=== PATIENT | female | born 1965 | race African-American/Black ===

== ENCOUNTER 2016-05-25 13:54 | Emergency (ER) | payer MEDICARE, MEDICAID ==
[~2016-05-25] VITALS: Ht 165.1 cm; Wt 42.0 kg
[2016-05-25] MEDS ORDERED: METHYLPREDNISOLONE SOD SUCC 125 MG/2 ML VIAL IV STA (15:36)
[2016-05-25] MEDS ORDERED: IPRATROPIUM BROMIDE (0.02%) 0.5MG/2.5ML NEB HHN STA (15:36)
[2016-05-25] MEDS ORDERED: ALBUTEROL (0.083%) 2.5MG/3ML NEB HHN SCH (16:00)
[2016-05-25 16:04] LABS: BASOPHILS % 0.7 % (0.0-2.0); DIFFERENTIAL COMMENT 0; EOSINOPHILS % 0.4 % (0.0-5.0); HEMATOCRIT. 44.4 % (36.0-48.0); HEMOGLOBIN. 15.4 g/dL (12.0-16.0); LYMPHOCYTES % 19.8 % (20.0-50.0); MEAN CORPUSCULAR HGB CONC 34.8 g/dL (31.0-37.0); MEAN CORPUSCULAR VOLUME 100.7 fL (81.0-99.0); MEAN PLATELET VOLUME 8.3 fl (7.4-10.4); MONOCYTES % 12.6 % (2.0-8.0); NEUTROPHILS % 66.5 % (40.0-76.0); PLATELET 164 x1000/uL (130-400); RED BLOOD CELL COUNT 4.41 mill/uL (4.2-5.4); WHITE BLOOD COUNT 4.6 x1000/uL (4.5-11.0)
[2016-05-25 16:07] LABS: PROTHROMBIN TIME 10.5 sec
[2016-05-25 16:14] LABS: ALANINE AMINOTRANSFERASE 27 IU/L (13-61); ALBUMIN 4.3 g/dL (3.4-5.0); ANION GAP 14; CALCIUM 9.5 mg/dL (8.5-10.1); CARBON DIOXIDE 27 mEq/L (21-32); CHLORIDE 97 mEq/L (98-107); INDEX HEMOLYSI 1 (1-3); INDEX ICTERIC 1 (1-4); INDEX LIPEMIC 1 (1-3); UREA NITROGEN BLOOD 15 mg/dL (7-21); eGFR > 60 mL/min (>60)
[2016-05-25 17:44] VITALS: BP 122/77
== END 2016-05-25 17:53 | disposition home or self-care (01) ==
LOC: ER 15:44
DX: J44.1 Chronic obstructive pulmonary disease with (acute) exacerbation (principal); I10 Essential (primary) hypertension; F17.210 Nicotine dependence, cigarettes, uncomplicated; Z90.710 Acquired absence of both cervix and uterus
CPT/HCPCS: 36415; 71010; 80053; 85025; 85610; 93005; 94640; 96374; 99285; 99406; J2930; J7611

== ENCOUNTER 2016-06-12 14:22 | Emergency (ER) | payer MEDICARE, MEDICAID ==
[~2016-06-12] VITALS: Ht 165.1 cm; Wt 60.0 kg
[2016-06-12] MEDS ORDERED: PREDNISONE 20MG TABLET PO ONE (15:00)
[2016-06-12] MEDS ORDERED: ONDANSETRON HCL 4MG TABLET PO ONE (15:00)
[2016-06-12] MEDS ORDERED: IPRATROPIUM/ALBUTEROL 0.5-3(2.5)MG/3ML NEB HHN ONE (15:00)
[2016-06-12 15:54] VITALS: BP 111/76
== END 2016-06-12 16:19 | disposition home or self-care (01) ==
LOC: ER 14:37
DX: J44.1 Chronic obstructive pulmonary disease with (acute) exacerbation (principal); I10 Essential (primary) hypertension; Z90.710 Acquired absence of both cervix and uterus; Z20.6 Contact with and (suspected) exposure to human immunodeficiency virus [HIV]
CPT/HCPCS: 71010; 94640; 99283; J7512; Q0162; J7620

== ENCOUNTER 2017-01-18 18:05 | Emergency (ER) | payer MEDICARE, MEDICAID ==
[~2017-01-18] VITALS: Ht 165.1 cm; Wt 50.0 kg
[2017-01-18] MEDS ORDERED: TETANUS, DIPHTHERIA, PERTUSSIS VAC/PF 0.5ML (>7YR OLD) IM ONE (19:45)
[2017-01-18] MEDS ORDERED: ACETAMINOPHEN 325MG TABLET PO ONE (19:45)
[2017-01-18] MEDS ORDERED: BACITRACIN ZINC OINT UDPKT TOP ONE (19:45)
[2017-01-18] MEDS ORDERED: LIDOCAINE HCL 1% 20ML VIAL (Pyxis) INJ MC ONE (19:45)
[2017-01-18 21:20] VITALS: BP 155/98
== END 2017-01-18 21:44 | disposition home or self-care (01) ==
LOC: ER 18:17
DX: S02.2XXA Fracture of nasal bones, initial encounter for closed fracture (principal); S01.21XA Laceration without foreign body of nose, initial encounter; F17.200 Nicotine dependence, unspecified, uncomplicated; J44.9 Chronic obstructive pulmonary disease, unspecified; I10 Essential (primary) hypertension; Y08.89XA Assault by other specified means, initial encounter; Y93.89 Activity, other specified; Y92.89 Other specified places as the place of occurrence of the external cause; Y99.8 Other external cause status; Z90.49 Acquired absence of other specified parts of digestive tract
CPT/HCPCS: 12011; 70486; 90471; 90715; 99284; J3490

== ENCOUNTER 2019-05-04 10:44 | Inpatient (IN) | payer MEDICARE, MEDICAID ==
[~2019-05-04] VITALS: Ht 165.1 cm; Wt 45.8 kg
[2019-05-04] MEDS ORDERED: IPRATROPIUM BROMIDE (0.02%) 0.5MG/2.5ML NEB HHN STA (11:07)
[2019-05-04] MEDS ORDERED: ALBUTEROL (0.083%) 2.5MG/3ML NEB HHN STA (11:07)
[2019-05-04] MEDS ORDERED: METHYLPREDNISOLONE SOD SUCC 125 MG/2 ML VIAL IV STA (11:07)
[2019-05-04 11:36] LABS: BASOPHILS % 0.5 % (0.0-2.0); EOSINOPHILS % 0.7 % (0.0-5.0); HEMATOCRIT. 44.1 % (36.0-48.0); HEMOGLOBIN. 14.7 g/dL (12.0-16.0); LYMPHOCYTES % 21.6 % (20.0-50.0); MEAN CORPUSCULAR HEMOGLOBIN 34.5 pg (28.0-32.0); MEAN CORPUSCULAR VOLUME 103.2 fL (81.0-99.0); MEAN PLATELET VOLUME 8.7 fl (7.4-10.4); NEUTROPHILS % 66.2 % (40.0-76.0); PLATELET 230 x1000/uL (130-400); RED BLOOD CELL COUNT 4.27 mill/uL (4.2-5.4)
[2019-05-04 11:41] LABS: CHLORIDE 98 mEq/L (98-107)
[2019-05-04] MEDS ORDERED: ACETAMINOPHEN 325MG TABLET PO PRN (16:15)
[2019-05-04] MEDS ORDERED: ONDANSETRON HCL 4MG/2ML INJ IV PRN (16:15)
[2019-05-04 16:27] LABS: BG BASE EXCESS 0.7 mmol/L (-2.0-2.0); BG CARBOXYHEMOGLOBIN 1.9 % (0.5-1.5); BG DEOXYHEMOGLOBIN 8.8 % (0.0-5.0); BG METHEMOGLOBIN 0.1 % (0.0-1.5); BG OXYHEMOGLOBIN 89.2 % (94.0-97.0); BG PCO2 49.4 mmHg (35.0-45.0); BG PH 7.355 (7.350-7.450); BG PO2 61.5 mmHg (75.0-100.0); BG SAMPLE SITE RIGHT BRACHIAL; BG TOTAL HEMOGLOBIN 14.2 g/dL (12.0-18.0); BG VENT MODE NASAL CANNULA
[2019-05-04] MEDS: BENZONATATE 100MG CAPSULE PO PRN (17:46)
[2019-05-04] MEDS: METHYLPREDNISOLONE SOD SUCC 40 MG/ML VIAL IV SCH (17:46)
[2019-05-04] MEDS ORDERED: NON FORMULARY PATIENT HOME MED XX SCH (21:45)
[2019-05-04 22:42] VITALS: BP 131/70
[2019-05-04] MEDS: MIRTAZAPINE 15MG TABLET PO SCH (22:54)
[2019-05-05] VITALS: BP 108/66
[2019-05-05] MEDS: IPRATROPIUM BROMIDE (0.02%) 0.5MG/2.5ML NEB HHN SCH ×3 (00:15→08:00)
[2019-05-05] MEDS ORDERED: ASPI-1497 PO (00:30)
[2019-05-05] MEDS ORDERED: BICT1TAB PO (00:30)
[2019-05-05] MEDS ORDERED: AMLO5TAB88 PO (00:30)
[2019-05-05] MEDS ORDERED: MIRT-91 PO (00:30)
[2019-05-05] MEDS ORDERED: MEGE40TA8 PO (00:30)
[2019-05-05] MEDS ORDERED: ATOR40TA70 PO (00:30)
[2019-05-05] MEDS ORDERED: GABA-531 PO (00:30)
[2019-05-05] MEDS ORDERED: MEGE400O5 PO (00:33)
[2019-05-05] MEDS: METHYLPREDNISOLONE SOD SUCC 40 MG/ML VIAL IV SCH ×4 (00:42→23:35)
[2019-05-05 04:00] VITALS: BP 123/86
[2019-05-05 06:12] LABS: CHLORIDE 101 mEq/L (98-107)
[2019-05-05 06:22] LABS: BASOPHILS % 0.1 % (0.0-2.0); HEMATOCRIT. 37.5 % (36.0-48.0); HEMOGLOBIN. 12.9 g/dL (12.0-16.0); LYMPHOCYTES % 12.6 % (20.0-50.0); MEAN CORPUSCULAR VOLUME 102.1 fL (81.0-99.0); MEAN PLATELET VOLUME 8.9 fl (7.4-10.4); MONOCYTES % 1.7 % (2.0-8.0); NEUTROPHILS % 85.6 % (40.0-76.0); PLATELET 214 x1000/uL (130-400); RED BLOOD CELL COUNT 3.67 mill/uL (4.2-5.4); RED CELL DISTRIBUTION WIDTH 14.8 % (11.6-14.6)
[2019-05-05 07:14] LABS: CLARITY URINE CLEAR (CLEAR); COLOR URINE YELLOW (YELLOW); KETONES URINE TRACE (NEGATIVE); LEUKOCYTE ESTERASE URINE NEGATIVE (NEGATIVE); NITRITE URINE NEGATIVE (NEGATIVE); OCCULT BLOOD URINE NEGATIVE (NEGATIVE); PH URINE 5.5 (4.5-8.0); PROTEIN URINE TRACE (NEGATIVE); SPECIFIC GRAVITY URINE 1.021 (1.005-1.030)
[2019-05-05 07:28] LABS: *AMPHETAMINES SCREEN URINE NEGATIVE (NEGATIVE); *BARBITURATES SCREEN URINE NEGATIVE (NEGATIVE); *BENZODIAZEPINES SCREEN URINE NEGATIVE (NEGATIVE); *COCAINE SCREEN URINE NEGATIVE (NEGATIVE)
[2019-05-05 07:29] LABS: CANNABINOID URINE SCREEN NEGATIVE (NEGATIVE); METHADONE URINE SCREEN NEGATIVE (NEGATIVE); OPIATES URINE SCREEN NEGATIVE (NEGATIVE); PHENCYCLIDINE URINE SCREEN NEGATIVE (NEGATIVE)
[2019-05-05 08:00] VITALS: BP 119/80
[2019-05-05] MEDS: FUROSEMIDE 40MG/4ML VIAL IVP SCH (08:20)
[2019-05-05] MEDS ORDERED: ACETAMINOPHEN 650MG/20.3ML UDC PO NR (11:00)
[2019-05-05] MEDS ORDERED: IPRATROPIUM/ALBUTEROL 0.5-3(2.5)MG/3ML NEB HHN PRN (11:15)
[2019-05-05] MEDS: FOLIC ACID 1MG TABLET PO SCH (11:35)
[2019-05-05] MEDS: MULTIVITAMINS,THER W-MINERALS TABLET PO SCH (11:36)
[2019-05-05] MEDS: IPRATROPIUM/ALBUTEROL 0.5-3(2.5)MG/3ML NEB HHN SCH ×3 (11:48→20:27)
[2019-05-05 12:00] VITALS: BP 107/64
[2019-05-05] MEDS: THIAMINE HCL 100MG TABLET PO SCH (12:21)
[2019-05-05] MEDS: BENZONATATE 100MG CAPSULE PO PRN (13:04)
[2019-05-05 16:00] VITALS: BP 125/66
[2019-05-05] MEDS ORDERED: IOHEXOL-350 100 ML BOTTLE ONE (18:17)
[2019-05-05 20:00] VITALS: BP 110/69
[2019-05-05] MEDS: MIRTAZAPINE 15MG TABLET PO SCH (20:36)
[2019-05-06] VITALS: BP 113/63
[2019-05-06] MEDS: BENZONATATE 100MG CAPSULE PO PRN ×2 (01:42→20:21)
[2019-05-06 04:00] VITALS: BP 2/113
[2019-05-06 07:17] LABS: CHLORIDE 100 mEq/L (98-107)
[2019-05-06 07:32] LABS: BASOPHILS % 0.1 % (0.0-2.0); HEMATOCRIT. 37.6 % (36.0-48.0); HEMOGLOBIN. 12.7 g/dL (12.0-16.0); LYMPHOCYTES % 9.7 % (20.0-50.0); MEAN CORPUSCULAR HEMOGLOBIN 34.8 pg (28.0-32.0); MEAN CORPUSCULAR VOLUME 102.9 fL (81.0-99.0); MONOCYTES % 3.3 % (2.0-8.0); NEUTROPHILS % 86.9 % (40.0-76.0); PLATELET 231 x1000/uL (130-400); RED BLOOD CELL COUNT 3.65 mill/uL (4.2-5.4); RED CELL DISTRIBUTION WIDTH 14.7 % (11.6-14.6)
[2019-05-06 08:00] VITALS: BP 111/68
[2019-05-06] MEDS: IPRATROPIUM/ALBUTEROL 0.5-3(2.5)MG/3ML NEB HHN SCH ×4 (08:21→20:54)
[2019-05-06] MEDS: MULTIVITAMINS,THER W-MINERALS TABLET PO SCH (08:51)
[2019-05-06] MEDS: THIAMINE HCL 100MG TABLET PO SCH (08:51)
[2019-05-06] MEDS: METHYLPREDNISOLONE SOD SUCC 40 MG/ML VIAL IV SCH ×2 (08:51→16:07)
[2019-05-06] MEDS: FUROSEMIDE 40MG/4ML VIAL IVP SCH (08:51)
[2019-05-06] MEDS: FOLIC ACID 1MG TABLET PO SCH (08:51)
[2019-05-06] MEDS ORDERED: BENZONATATE 100MG CAPSULE PO PRN (11:30)
[2019-05-06] MEDS ORDERED: TERBUTALINE SULFATE 1MG/ML VIAL SUBCUT NR (12:30)
[2019-05-06 12:44] VITALS: BP 119/78
[2019-05-06 16:02] VITALS: BP 110/65
[2019-05-06] MEDS: MIRTAZAPINE 15MG TABLET PO SCH (20:21)
[2019-05-06 20:31] VITALS: BP 128/70
[2019-05-06] MEDS: BUDESONIDE 0.5MG/2ML NEB HHN SCH (20:54)
[2019-05-07 00:20] VITALS: BP 135/83
[2019-05-07] MEDS: IPRATROPIUM/ALBUTEROL 0.5-3(2.5)MG/3ML NEB HHN SCH ×6 (00:39→20:57)
[2019-05-07] MEDS: METHYLPREDNISOLONE SOD SUCC 40 MG/ML VIAL IV SCH ×3 (01:34→18:24)
[2019-05-07 04:00] VITALS: BP 126/89
[2019-05-07] MEDS: FUROSEMIDE 40MG/4ML VIAL IVP SCH (08:24)
[2019-05-07] MEDS: FOLIC ACID 1MG TABLET PO SCH (08:24)
[2019-05-07] MEDS: MULTIVITAMINS,THER W-MINERALS TABLET PO SCH (08:24)
[2019-05-07] MEDS: THIAMINE HCL 100MG TABLET PO SCH (08:24)
[2019-05-07] MEDS: BENZONATATE 100MG CAPSULE PO PRN (08:32)
[2019-05-07] MEDS: BUDESONIDE 0.5MG/2ML NEB HHN SCH ×2 (09:02→20:57)
[2019-05-07 09:06] LABS: ABSOLUTE LYMPHOCYTES 0.6 x10E3/uL (0.7-3.1); ABSOLUTE MONOCYTES 0.2 x10E3/uL (0.1-0.9); ABSOLUTE NEUTROPHILS 5.2 x10E3/uL (1.4-7.0); BASOPHILS 0 % (Not Estab.); HEMATOCRIT 37.9 % (34.0-46.6); HEMOGLOBIN 12.5 g/dL (11.1-15.9); IMMATURE GRANULOCYTES 0 % (Not Estab.); LYMPHOCYTES 10 % (Not Estab.); MEAN CORPUSCULAR HEMOGLOBIN 33.3 pg (26.6-33.0); MEAN CORPUSCULAR VOLUME 101 fL (79-97); MONOCYTES 3 % (Not Estab.); NEUTROPHILS 87 % (Not Estab.); PLATELETS 269 x10E3/uL (150-450); RBC 3.75 x10E6/uL (3.77-5.28); RED CELL DISTRIBUTION WIDTH 14.2 % (11.7-15.4)
[2019-05-07 12:02] LABS: BG BASE EXCESS 6.8 mmol/L (-2.0-2.0); BG CARBOXYHEMOGLOBIN 0.9 % (0.5-1.5); BG DEOXYHEMOGLOBIN 9.6 % (0.0-5.0); BG FRACTION INSPIRED OXYGEN 21; BG HCO3 ACT 31.4 mmol/L (22.0-26.0); BG METHEMOGLOBIN 0.3 % (0.0-1.5); BG OXYGEN SATURATION 90.3 % (92.0-98.5); BG OXYHEMOGLOBIN 89.2 % (94.0-97.0); BG PCO2 44.6 mmHg (35.0-45.0); BG PH 7.466 (7.350-7.450); BG PO2 55.1 mmHg (75.0-100.0); BG SAMPLE SITE RIGHT BRACHIAL; BG TOTAL HEMOGLOBIN 14.1 g/dL (12.0-18.0); BG VENT MODE ROOM AIR
[2019-05-07] MEDS ORDERED: P20 MT (13:30)
[2019-05-07 14:08] LABS: % CD 3 POS. LYMPHOCYTES 74.4 % (57.5-86.2); % CD 4 POS. LYMPHOCYTES 27.1 % (30.8-58.5); % CD 8 POS. LYMPH 48.6 % (12.0-35.5); ABSOLUTE CD 3 446 /uL (622-2402); ABSOLUTE CD 4 HELPER 163 /uL (359-1519); ABSOLUTE CD 8 SUPPRESSOR 292 /uL (109-897); CD4/CD8 RATIO 0.56 (0.92-3.72)
[2019-05-07 19:40] VITALS: BP 129/82
[2019-05-07] MEDS: MIRTAZAPINE 15MG TABLET PO SCH (21:58)
[2019-05-07 23:56] VITALS: BP 132/83
[2019-05-08] MEDS: IPRATROPIUM/ALBUTEROL 0.5-3(2.5)MG/3ML NEB HHN SCH ×6 (01:06→22:19)
[2019-05-08] MEDS: METHYLPREDNISOLONE SOD SUCC 40 MG/ML VIAL IV SCH ×3 (01:57→17:00)
[2019-05-08 04:20] VITALS: BP 121/74
[2019-05-08] MEDS: BUDESONIDE 0.5MG/2ML NEB HHN SCH ×2 (07:46→22:19)
[2019-05-08] MEDS: FOLIC ACID 1MG TABLET PO SCH (08:15)
[2019-05-08] MEDS: MULTIVITAMINS,THER W-MINERALS TABLET PO SCH (08:15)
[2019-05-08] MEDS: THIAMINE HCL 100MG TABLET PO SCH (08:15)
[2019-05-08] MEDS: BENZONATATE 100MG CAPSULE PO PRN (08:15)
[2019-05-08] MEDS ORDERED: SULFAMETHOXAZOLE/TRIMETHOPRIM 800/160MG TABLET PO SCH (12:18)
[2019-05-08] MEDS ORDERED: SULF1TAB48 MT (14:35)
[2019-05-08 15:40] VITALS: BP 131/77
[2019-05-08 18:50] VITALS: BP 130/75
[2019-05-08 20:00] VITALS: BP 134/84
[2019-05-08] MEDS: MIRTAZAPINE 15MG TABLET PO SCH (21:13)
[2019-05-09] VITALS: BP 143/92
[2019-05-09] MEDS: METHYLPREDNISOLONE SOD SUCC 40 MG/ML VIAL IV SCH (00:41)
[2019-05-09] MEDS: IPRATROPIUM/ALBUTEROL 0.5-3(2.5)MG/3ML NEB HHN SCH ×2 (00:47→05:05)
[2019-05-09 04:00] VITALS: BP 136/79
[2019-05-09] MEDS: BENZONATATE 100MG CAPSULE PO PRN (05:46)
== END 2019-05-09 06:42 | disposition home or self-care (01) | DRG 291 ==
LOC: ER 10:44 → 5WST 13:34 → EDBEDREQ 13:37 → ENRESERV 19:26
PROVIDERS: ADMIT Internal Medicine Nephrology; ATTEND Internal Medicine
DX: I11.0 Hypertensive heart disease with heart failure (principal); J96.00 Acute respiratory failure, unspecified whether with hypoxia or hypercapnia; J44.1 Chronic obstructive pulmonary disease with (acute) exacerbation; B20 Human immunodeficiency virus [HIV] disease; I50.33 Acute on chronic diastolic (congestive) heart failure; J06.9 Acute upper respiratory infection, unspecified; F10.10 Alcohol abuse, uncomplicated; F32.9 Major depressive disorder, single episode, unspecified; F41.9 Anxiety disorder, unspecified; F12.90 Cannabis use, unspecified, uncomplicated; F17.210 Nicotine dependence, cigarettes, uncomplicated; Y90.9 Presence of alcohol in blood, level not specified; Z79.899 Other long term (current) drug therapy; Z90.710 Acquired absence of both cervix and uterus; Z71.6 Tobacco abuse counseling
CPT/HCPCS: 36415; 36600; 71045; 71275; 80048; 80053; 80305; 81003; 82375; 82805; 83880; 84484; 85025; 86359; 86360; 87804; 93005; 93306; 94640; 96374; 97162; 99285; J1940; J2920; J2930; J3105; J7626; Q9967